=== PATIENT | female | born 1985 | race Caucasian/White ===

== ENCOUNTER 2017-03-22 11:46 | Emergency (ER) | payer OTHER ==
[~2017-03-22] VITALS: Ht 172.7 cm; Wt 84.4 kg
--- NOTE | ~2017-03-22 | EKG ---
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
[~2017-03-22 11:46] MED LIST: ALEVE220 M1 PO; BACLOFEN 10MG T10 M1 PO; BACLOFEN PO; CLONAZEPAM 1 MG1 M1 PO; DIAZEPAM 5 MG5 M1 PO; DILAUDID 4 MG TA4 MG PO; DILAUDID2 M1 PO; FLEXERIL PO; GRALISE600 MG PO; NEURONTIN 300300 M1 PO; NEURONTIN 300M300 M2 PO; NORCO 5-325 TA1 EACH PO; PERCOCET PO; PREDNISONE50 MG PO; VALIUM10 MG PO
[2017-03-22 12:48] LABS: ABSOLUTE NEUTROPHILS 11.3 thou/uL (1.4-8.2); BASOPHILS 0.3 % (0.0-2.0); EOSINOPHILS 2.2 % (0.0-3.0); HEMATOCRIT 37.8 % (37.0-47.0); HEMOGLOBIN 13.2 gm/dL (12.0-15.0); LYMPHOCYTES 12.2 % (24.0-44.0); MANUAL DIFF NO; MCHC 34.9 g/dL (28.0-37.0); MCV 88.7 fL (80.0-100.0); MONOCYTES 3.8 % (1.0-8.0); PLATELET COUNT 328 thou/uL (150-400); POLYS 81.5 % (36.0-66.0); RBC 4.26 mil/uL (4.20-5.00); RDW 12.3 % (10.5-14.5); WBC 13.9 thou/uL (4.0-11.0)
[2017-03-22 13:04] LABS: PROTIME 9.7 Seconds (9.3-11.4)
[2017-03-22] MEDS ORDERED: CLARITIN10 MG PO (13:33)
[2017-03-22] MEDS ORDERED: NEXIUM40 MG PO (13:34)
[2017-03-22] MEDS ORDERED: TRINATE TABLET1 TAB PO (13:34)
[2017-03-22] MEDS ORDERED: CEFDINIR300 MG PO (13:36)
[2017-03-22 14:03] LABS: CALCIUM 8.4 mg/dL (8.5-10.1); CREATININE 0.5 mg/dL (0.6-1.0); POTASSIUM 3.6 mmol/L (3.5-5.1)
[2017-03-22] MEDS ORDERED: APAP500 PO (14:35)
[2017-03-22] MEDS ORDERED: VENTOLIN HFA 1818 GM INH (14:35)
== END 2017-03-22 15:04 | disposition home or self-care (01) ==
LOC: ER 11:46
PROVIDERS: Emergency Medicine
DX: O99.512 Diseases of the respiratory system complicating pregnancy, second trimester (principal); J40 Bronchitis, not specified as acute or chronic; L40.9 Psoriasis, unspecified; G25.82 Stiff-man syndrome; Z3A.15 15 weeks gestation of pregnancy